=== PATIENT | male | born 1955 | race Caucasian/White ===

== ENCOUNTER 2017-11-13 13:49 | Inpatient (IN) | payer OTHER ==
[~2017-11-13] VITALS: Ht 165.1 cm; Wt 72.4 kg
[2017-11-13 16:17] VITALS: BP 143/72
[2017-11-13] MEDS ORDERED: LIPITOR80 MG PO (17:20)
[2017-11-13] MEDS ORDERED: ADVANCED ANTAC355 ML PO (17:21)
[2017-11-13] MEDS ORDERED: MULTI-DAY PLUS1 EAC1 PO (17:23)
[2017-11-13] MEDS ORDERED: NICOTINE PATCH1 EAC2 TP (17:23)
[2017-11-13] MEDS ORDERED: LISINOPRIL5 MG PO (17:24)
[2017-11-13] MEDS ORDERED: FINASTERIDE1 MG PO (17:25)
[2017-11-13] MEDS ORDERED: ASPIRIN325 MG PO (17:25)
[2017-11-13] MEDS ORDERED: FLOMAX0.4 MG PO (17:26)
[2017-11-13] MEDS ORDERED: NOVOLOG 10100 UNITS/ SC (17:28)
[2017-11-14 00:37] VITALS: BP 135/81
[2017-11-14 04:55] LABS: HEMATOCRIT 45.4 % (38.0-50.0); HEMOGLOBIN 16.8 G/DL (12.5-16.6); MCH 32.9 PG (29.0-34.0); PLATELET COUNT 259 K/uL (156-360); RBC DIS.WIDTH-CV 11.9 % (11.8-14.6); RBC DIS.WIDTH-SD 38.4 % (39-53); WHITE BLOOD COUNT 14.5 K/uL (4.1-10.2)
[2017-11-14 05:10] LABS: ALBUMIN 4.5 g/dL (3.2-4.8); CHLORIDE 102 mEq/L (99-109); POTASSIUM 4.5 mEq/L (3.7-5.4); SODIUM 136 mEq/L (136-147)
[2017-11-14 05:13] LABS: GLUCOSE 121 mg/dL (70-99); TOTAL PROTEIN 7.3 g/dL (6.4-8.3)
[2017-11-14 05:15] LABS: TOTAL BILIRUBIN 0.9 mg/dL (0.0-1.0)
[2017-11-14 05:16] LABS: ALKALINE PHOSPHATASE 71 IU/L (3-129); CREATININE 0.8 mg/dL (0.6-1.3); GFR ESTIMATE (CALCULATED) > 59 mL/min/ (58.99-99999)
[2017-11-14 05:17] LABS: UREA NITROGEN (BUN) 20 mg/dL (9-23)
[2017-11-14 05:18] LABS: AST (GOT) 34 IU/L (2-34)
[2017-11-14 05:19] LABS: ALT (GPT) 39 IU/L (3-49)
[2017-11-14 06:46] VITALS: BP 149/81
[2017-11-14 16:12] VITALS: BP 137/78
[2017-11-15 06:01] LABS: HEMATOCRIT 45.5 % (38.0-50.0); HEMOGLOBIN 16.1 G/DL (12.5-16.6); MCH 32.3 PG (29.0-34.0); MCHC 35.4 G/DL (30.0-36.0); MCV 91.2 FL (86-99); PLATELET COUNT 266 K/uL (156-360); RBC DIS.WIDTH-CV 11.9 % (11.8-14.6); RBC DIS.WIDTH-SD 39.8 % (39-53); RED BLOOD COUNT 4.99 M/uL (4.00-5.50); WHITE BLOOD COUNT 13.1 K/uL (4.1-10.2)
[2017-11-15 06:23] VITALS: BP 187/82
[2017-11-15 16:31] VITALS: BP 141/72
[2017-11-16 06:23] VITALS: BP 153/74
[2017-11-16 15:47] VITALS: BP 102/51
[2017-11-17 06:12] VITALS: BP 137/72
[2017-11-17 15:44] VITALS: BP 148/70
[2017-11-18 06:28] VITALS: BP 136/77
[2017-11-18 16:26] VITALS: BP 124/68
[2017-11-18 20:49] VITALS: BP 128/58
[2017-11-19 05:45] VITALS: BP 144/69
[2017-11-19 15:10] VITALS: BP 119/57
[2017-11-20 06:16] VITALS: BP 102/54
[2017-11-20 15:46] VITALS: BP 118/75
[2017-11-21 06:01] VITALS: BP 117/62
[2017-11-21 15:13] VITALS: BP 145/70
[2017-11-22 06:42] VITALS: BP 140/70
[2017-11-22 16:03] VITALS: BP 142/64
[2017-11-23 06:09] VITALS: BP 91/54
[2017-11-23 07:26] LABS: HEMATOCRIT 43.3 % (38.0-50.0); HEMOGLOBIN 15.3 G/DL (12.5-16.6); MCH 32.9 PG (29.0-34.0); MCHC 35.3 G/DL (30.0-36.0); MCV 93.1 FL (86-99); RBC DIS.WIDTH-CV 11.9 % (11.8-14.6); RBC DIS.WIDTH-SD 40.8 % (39-53); RED BLOOD COUNT 4.65 M/uL (4.00-5.50); WHITE BLOOD COUNT 12.5 K/uL (4.1-10.2)
[2017-11-23 07:50] LABS: ALBUMIN 4.3 G/DL (3.2-4.8); ALKALINE PHOSPHATASE 68 IU/L (3-129); ALT (GPT) 40 IU/L (3-49); AST (GOT) 20 IU/L (2-34); CHLORIDE 103 MEQ/L (99-109); CREATININE 0.8 MG/DL (0.6-1.3); GFR ESTIMATE (CALCULATED) > 59 mL/min/ (58.99-99999); GLUCOSE 119 mg/dL (70-99); POTASSIUM 4.7 MEQ/L (3.7-5.4); SODIUM 138 MEQ/L (136-147); TOTAL BILIRUBIN 0.5 MG/DL (0.0-1.0); TOTAL PROTEIN 6.7 G/DL (6.4-8.3); UREA NITROGEN (BUN) 20 mg/dL (9-23)
[2017-11-23 07:53] LABS: PLAT.SUFFICIENCY ADEQUATE; PLATELET COUNT 285 K/uL (156-360)
[2017-11-23 15:00] VITALS: BP 143/69
[2017-11-24 05:52] VITALS: BP 103/58
[2017-11-24 15:44] VITALS: BP 150/75
[2017-11-24 22:45] VITALS: BP 158/75
[2017-11-25 06:16] VITALS: BP 127/61
[2017-11-25 07:57] LABS: HEMATOCRIT 41.7 % (38.0-50.0); MCH 33.3 PG (29.0-34.0); MCV 92.7 FL (86-99); PLATELET COUNT 279 K/uL (156-360); RBC DIS.WIDTH-CV 11.9 % (11.8-14.6); RBC DIS.WIDTH-SD 40.2 % (39-53); WHITE BLOOD COUNT 13.3 K/uL (4.1-10.2)
[2017-11-25 08:23] LABS: ALBUMIN 4.2 G/DL (3.2-4.8); ALKALINE PHOSPHATASE 70 IU/L (3-129); ALT (GPT) 45 IU/L (3-49); AST (GOT) 25 IU/L (2-34); CHLORIDE 102 MEQ/L (99-109); CREATININE 0.9 MG/DL (0.6-1.3); GFR ESTIMATE (CALCULATED) > 59 mL/min/ (58.99-99999); GLUCOSE 125 mg/dL (70-99); POTASSIUM 4.6 MEQ/L (3.7-5.4); SODIUM 137 MEQ/L (136-147); TOTAL BILIRUBIN 0.6 MG/DL (0.0-1.0); TOTAL PROTEIN 6.4 G/DL (6.4-8.3); UREA NITROGEN (BUN) 15 mg/dL (9-23)
[2017-11-25 15:55] VITALS: BP 108/55
[2017-11-26 06:05] VITALS: BP 149/68
[2017-11-26 15:45] VITALS: BP 111/55
[2017-11-27 06:19] VITALS: BP 118/59
[2017-11-27 07:20] VITALS: BP 127/73
[2017-11-27 15:58] VITALS: BP 132/72
[2017-11-28 06:33] VITALS: BP 108/55
[2017-11-28 07:23] VITALS: BP 133/69
[2017-11-28] MEDS ORDERED: FAMOTIDINE20 MG PO (07:48)
[2017-11-28] MEDS ORDERED: ASPIRIN325 MG PO (07:48)
[2017-11-28] MEDS ORDERED: NICOTINE PATCH1 EAC2 TP (07:48)
[2017-11-28] MEDS ORDERED: METFORMIN HCL500 MG PO (07:48)
[2017-11-28] MEDS ORDERED: LIPITOR80 MG PO (07:48)
[2017-11-28] MEDS ORDERED: LISINOPRIL5 MG PO (07:48)
[2017-11-28] MEDS ORDERED: FLOMAX0.4 MG PO (07:48)
[2017-11-28] MEDS ORDERED: FINASTERIDE1 MG PO (07:48)
== END 2017-11-28 14:15 | disposition home health service (06) | DRG 57 ==
LOC: 3WEST 13:49 → EDBD 15:47 → 3WEST 15:47 → ENPENDDIS 11-28 → 3WEST 11-28 13:15
PROVIDERS: Physical Medicine & Rehabilitation; Physical Medicine & Rehabilitation Pain Medicine
PROC: F07M0ZZ Range of Motion and Joint Mobility Treatment of Musculoskeletal System - Whole Body (ICD-10-PCS; principal; 2017-11-13)
DX: I69.351 Hemiplegia and hemiparesis following cerebral infarction affecting right dominant side (principal); I69.320 Aphasia following cerebral infarction; R26.89 Other abnormalities of gait and mobility; E11.9 Type 2 diabetes mellitus without complications; I10 Essential (primary) hypertension; K21.9 Gastro-esophageal reflux disease without esophagitis; N40.0 Benign prostatic hyperplasia without lower urinary tract symptoms; F40.240 Claustrophobia; E87.5 Hyperkalemia; F43.23 Adjustment disorder with mixed anxiety and depressed mood; F41.9 Anxiety disorder, unspecified; F32.9 Major depressive disorder, single episode, unspecified; D72.829 Elevated white blood cell count, unspecified; M21.379 Foot drop, unspecified foot; Z86.73 Personal history of transient ischemic attack (TIA), and cerebral infarction without residual deficits; F17.210 Nicotine dependence, cigarettes, uncomplicated; K59.00 Constipation, unspecified; Z79.84 Long term (current) use of oral hypoglycemic drugs; Z83.3 Family history of diabetes mellitus; R13.10 Dysphagia, unspecified; Z82.49 Family history of ischemic heart disease and other diseases of the circulatory system
CPT/HCPCS: 80053; 82948; 85027; 92507 GN; 92523 GN; 92526 GN; 97110 GO; 97112 GO; 97530 GP; J1650; J1815